=== PATIENT | male | born 1960 | race Caucasian/White ===

== ENCOUNTER → 2016-10-31 | Outpatient (CLI) | payer OTHER ==
[~2016-10-31] MED LIST: HYDROCODONE-AP1 EAC6 PO; NORCO 10-325 T1 EACH PO
== END | disposition home or self-care (01) ==
LOC: LITH 07:20
DX: N20.1 Calculus of ureter (principal); G47.33 Obstructive sleep apnea (adult) (pediatric); Z98.890 Other specified postprocedural states